=== PATIENT | female | born 1970 | race Caucasian/White ===

== ENCOUNTER 2017-09-17 11:52 | Emergency (ER) | payer OTHER, SELFPAY ==
[2017-09-17 11:58] VITALS: BP 115/73; PULSE 72; RESP 20; TEMP 36.3; O2SAT 98; BMI 26.4
--- NOTE | 2017-09-17 12:56 | ED_ITS ---
HPI - Wound/Laceration <KATERINE Pitts Last Filed: 09/17/17 21:43> General Chief Complaint: Wound/Laceration Stated Complaint: LACERATION TO INDEX FINGER R HAND LAST NIGHT Time Seen by Provider: 09/17/17 13:06 Source: patient Mode of arrival: ambulatory Limitations: no limitations History of Present Illness HPI narrative: This 47-year-old right-handed female was cleaning a knife at home last night when it slipped and cut her right pointer finger pad. She states it tends to start bleeding again when she moves her finger, so wondering if she might need stitches. 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 She denies any other injury. She states that the area is tender with pressure, can feel somewhat numb at times. She denies any weakness in the finger. She does not know when her last tetanus vaccine was Related Data Home Medications Medication Instructions Recorded Confirmed levothyroxine [Synthroid] 100 mcg PO QAM #0 06/09/17 Previous Rx's Medication Instructions Recorded cyclobenzaprine 10 mg PO Q8HP PRN #20 tab 06/09/17 Allergies Allergy/AdvReac Type Severity Reaction Status Date / Time No Known Drug Allergies Allergy Verified 09/17/17 12:04 Review of Systems <KATERINE Pitts Last Filed: 09/17/17 21:43> Review of Systems All systems reviewed & are unremarkable except as noted in HPI and below Exam <KATERINE Pitts Last Filed: 09/17/17 21:43> Narrative Exam Narrative: GENERAL APPEARANCE: Patient sitting comfortably, in no distress. DERM: Right pointer finger pad there is a 1 cm linear laceration that appears to be mostly closed, depth not more than 1 mm, no active bleeding, slight ecchymoses at the borders MS: R. pointer finger range of motion is intact, strength is intact against resistance in all [place] NEUROVASC: Right pointer finger tip is warm and pink, sensation grossly intact Course <KATERINE Pitts Last Filed: 09/17/17 21:43> Orders Ordered: Discontinued Medications Diphtheria/Tetanus/Acell Pertussis (Adacel) 0.5 ml IM .ONCE ONE Stop: 09/17/17 13:36 Last Admin: 09/17/17 13:37 Dose: 0.5 ml Tetanus/Diphtheria Toxoids (Td) 0.5 ml IM .ONCE ONE Stop: 09/17/17 18:20 Last Vital Signs Temp 97.3 F L 09/17/17 11:58 Pulse 72 09/17/17 11:58 Resp 20 09/17/17 11:58 BP 115/73 09/17/17 11:58 Pulse Ox 98 09/17/17 11:58 <Francisco Brannon DO - Last Filed: 09/21/17 07:08> Orders Ordered: Discontinued Medications Diphtheria/Tetanus/Acell Pertussis (Adacel) 0.5 ml IM .ONCE ONE Stop: 09/17/17 13:36 Last Admin: 09/17/17 13:37 Dose: 0.5 ml Tetanus/Diphtheria Toxoids (Td) 0.5 ml IM .ONCE ONE Stop: 09/17/17 18:20 Last Vital Signs Temp 97.3 F L 09/17/17 11:58 Pulse 72 09/17/17 11:58 Resp 20 09/17/17 11:58 BP 115/73 09/17/17 11:58 Pulse Ox 98 09/17/17 11:58 MDM - Wound/Laceration <Ijeoma Mccormick PA-C - Last Filed: 09/17/17 21:43> Lab Data Attestation: I reviewed the patient's lab results. Discharge Plan Departure Patient Disposition: Home, Self-Care Clinical Impression: Laceration of finger Discharge Date/Time: 09/17/17 13:47 Interventions: ED Discharge Assessment Last Done: 09/17/17 13:44 Instructions: DI for Minor Laceration Activity Restrictions/Additional Instructions: Keep this wound clean and dry and protected, especially while you are at work. Monitor for signs of infection and return here to your PCP if any Prescriptions: No Action levothyroxine [Synthroid] 100 MCG tablet 100 mcg PO QAM Qty: 0 RF: 0 cyclobenzaprine 10 MG tablet 10 mg PO Q8HP PRNQty: 20 RF: 0 Referrals: [facility] [Provider Group] <Francisco Brannon DO - Last Filed: 09/21/17 07:08> Cosign ED Attending Cosignature Attestation: I was available for consultation during this patient's emergency department encounter
[2017-09-17] MEDS: TET,DIPH,PERTUSS(ACELL),VAC/PF 0.5 ML SYRINGE IM (13:37)
--- NOTE | 2017-09-17 13:40 | PC.NURSE ---
sterdemarioips., jordi small, lily
== END 2017-09-17 13:47 | disposition home or self-care (01) ==
PROVIDERS: Emergency Provider Internal Medicine
DX: S61.210A Laceration without foreign body of right index finger without damage to nail, initial encounter (principal); W26.0XXA Contact with knife, initial encounter
CPT/HCPCS: 12001; 99283; 90715

== ENCOUNTER 2018-07-09 08:49 | Emergency (ER) | payer OTHER, SELFPAY ==
[2018-07-09 08:55] VITALS: BP 108/81; PULSE 78; RESP 16; TEMP 36.7; O2SAT 100; BMI 28.3
--- NOTE | 2018-07-09 09:42 | ED.URI ---
HPI - URI/Sore Throat General Chief Complaint: Upper Respiratory Symptoms Stated Complaint: 'sick for a month' Time Seen by Provider: 07/09/18 09:25 Source: patient Mode of arrival: ambulatory Limitations: no limitations History of Present Illness HPI Narrative: patient is a 48-year-old female. Otherwise healthy except for hypothyroid who states that over the past month she has had sinus congestion, tenderness with palpation of the sinuses, runny nose, sore throat, right ear fullness. She has been on Claritin and Flonase for the past month which has not improved her symptoms all that much. She denies any fevers. She states that yesterday she started to have a cough. Denies any body aches. Related Data Home Medications Medication Instructions Recorded Confirmed levothyroxine [Synthroid] 100 mcg PO QAM #0 06/09/17 Previous Rx's Medication Instructions Recorded cyclobenzaprine 10 mg PO Q8HP PRN #20 tab 06/09/17 azithromycin See Rx Instructions .ROUTE 07/09/18 .COMPLEX #6 tab oseltamivir [Tamiflu] 75 mg PO BID 5 Days #10 cap 07/09/18 Allergies Allergy/AdvReac Type Severity Reaction Status Date / Time No Known Drug Allergies Allergy Verified 07/09/18 08:55 Review of Systems Constitutional Denies fever(s) and Denies headache(s) Eyes Denies change in vision and Denies diplopia ENT Ears, Nose, Mouth, and Throat: Denies vertigo, Denies dizziness, Denies ear discharge, Reports facial pain, Denies headache(s), Denies mouth pain, Reports nasal congestion, Reports nasal discharge, Denies neck pain, Denies nose pain, Reports post nasal drip, Reports tinnitus, Reports sinus pain, Reports sinus pressure and Reports sore throat Cardiovascular Denies chest pain and Denies dyspnea Respiratory Reports cough and Denies dyspnea Gastrointestinal Gastrointestinal: Denies abdominal pain, Denies nausea and Denies vomiting Musculoskeletal Denies myalgias, Denies arthralgias and Denies neck pain Integumentary/Breasts Denies rash Neurologic Denies vertigo, Denies dizziness and Denies headache(s) Hematologic/Lymphatic Denies easy bleeding and Denies easy bruising PFSH Social History Smoking Status: Never smoker Exam Initial Vital Signs Initial Vital Signs: Vital Signs Temperature 98.1 F 07/09/18 08:55 Pulse Rate 78 07/09/18 08:55 Respiratory Rate 16 07/09/18 08:55 Blood Pressure 108/81 07/09/18 08:55 Pulse Oximetry 100 07/09/18 08:55 Const General: cooperative, comfortable, well developed, well groomed and No acute distress Orientation: alert, awake and oriented x3 HENMT Head: normal to inspection and normocephalic Ears: TM normal on the left and TM abnormal bulging on the right, wth effusion serous on the right and with fluid behind the TM on the right; not erythematous Nose: external nose normal Face and sinus: tenderness bilaterally ( Over the frontal and maxillary sinuses) forehead and maxilla Mouth: oral mucosae normal and moist mucous membranes Throat: posterior oropharynx abnormal cobblestoning Resp Effort & Inspection: normal respiratory effort Auscultation: clear to auscultation bilaterally Cardio Rate: regular rate Rhythm: regular rhythm Skin Lesions: no lesions Rashes: no rashes Neuro General: alert, awake and oriented x3 Extrem General: normal to inspection and capillary refill normal Psych Appearance: grossly normal and well kempt Course Orders Ordered: ED Orders 07/09/18 09:28 Influenza A and B by PCR Rapid Stat Vital Signs - 8 hr 07/09/18 08:55 Temperature 98.1 F Pulse Rate 78 Respiratory Rate 16 Blood Pressure 108/81 Pulse Oximetry 100 [facility] - URI/Sore Throat Lab Data Attestation: I reviewed the patient's lab results. Lab Results 07/09/18 Range/Units 09:28 Influenza A & B (PCR) Positive, type a A (Negative) [facility] Narrative Medical decision making narrative: patient has been on decongestants for the past month. She has been using them every day. She does have what appears to be an upper respiratory infection. Does have fluid behind the right ear. Has sinus tenderness to palpation. Does have tenderness to her sinuses when she bends over. Also has physical exam consistent with a postnasal drip. Low suspicion for pneumonia. Given the fact that she has been on decongestants for the past month without any improvement and does have other signs of sinusitis I feel that a course of antibiotics for this is not unreasonable. The patient agrees. Surprisingly the patient also came back positive for the flu. Unknown as to how long she has had symptoms. We had a long discussion about Tamiflu and the guidelines for treating versus not treating. Patient does work in a cafeteria at a school. we did have a discussion about that her other symptoms could be potentially related to the flu however I feel this is unlikely since they have been going on for the past month. We did discuss the limited benefit of Tamiflu however the patient opted to take this medication. Patient was given return precautions. She expressed understanding and agreement with plan. Discharge Plan Departure Patient Disposition: Home Clinical Impression: Influenza Sinusitis Qualifiers: Sinusitis location: frontal Chronicity: acute Recurrence: not specified as recurrent Qualified Code(s): J01.10 - Acute frontal sinusitis, unspecified Instructions: Sinusitis, DI for Influenza -- Adult Activity Restrictions/Additional Instructions: take the medications as directed. Contact your primary care doctor for a follow-up. Return to the emergency department for any new or worsening symptoms Prescriptions: New azithromycin 250 mg tablet See Rx Instructions .ROUTE .COMPLEX Qty: 6 RF: 0 oseltamivir [Tamiflu] 75 mg capsule 75 mg PO BID 5 Days Qty: 10 RF: 0 No Action levothyroxine [Synthroid] 100 MCG tablet 100 mcg PO QAM Qty: 0 RF: 0 cyclobenzaprine 10 MG tablet 10 mg PO Q8HP PRNQty: 20 RF: 0
== END 2018-07-09 10:28 | disposition home or self-care (01) ==
PROVIDERS: Emergency Provider Emergency Medicine
DX: J11.1 Influenza due to unidentified influenza virus with other respiratory manifestations (principal); J01.10 Acute frontal sinusitis, unspecified
CPT/HCPCS: 87400; 99282

== ENCOUNTER 2019-04-21 10:47 | Emergency (ER) | payer OTHER, SELFPAY ==
[2019-04-21 10:54] VITALS: BP 120/81; PULSE 83; RESP 16; TEMP 36.7; O2SAT 95
--- NOTE | 2019-04-21 11:01 | ED.URI ---
HPI - URI/Sore Throat <ROXANNE Oneill - Last Filed: 04/21/19 19:30> General Chief Complaint: Upper Respiratory Symptoms Stated Complaint: stuffy nose,coughing,fever,headache Time Seen by Provider: 04/21/19 10:56 Source: patient Mode of arrival: Ambulatory Limitations: no limitations History of Present Illness HPI Narrative: 48yo female, presents to the emergency department complaining of a cough, myalgias, rhinorrhea, and a fever of 101 F starting 6 days ago. She states the rhinorrhea and cough have slowly resolved but she continues to have a dull aching ?sinus headache with a gradual onset ?that is worse toward the end. She took Tylenol for this headache but denies taking any ibuprofen as she states she has having a carbuncle removed on the and was told to refrain from taking aspirin 5 days prior to the procedure. Patient denies any history of asthma, nausea, vomiting, diarrhea, dizziness, loss of vision, sudden onset of headache, facial droop, shortness of breath, chest pain, abdominal pain, or other concerns. Related Data Home Medications Medication Instructions Recorded Confirmed levothyroxine [Synthroid] 112 mcg PO DAILY 04/21/19 04/21/19 loratadine 10 mg PO DAILY 04/21/19 Previous Rx's Medication Instructions Recorded fluticasone propionate [Flonase 1 spray NASAL BID #15.8 ml 04/21/19 Allergy Relief] metoclopramide HCl [Reglan] 5 mg PO Q4-6H PRN #10 tab 04/21/19 Allergies Allergy/AdvReac Type Severity Reaction Status Date / Time No Known Drug Allergies Allergy Verified 07/09/18 08:55 Review of Systems <ROXANNE Oneill - Last Filed: 04/21/19 19:30> Review of Systems Narrative: REVIEW OF SYSTEMS: GENERAL: Denies fevers. HENT: No head trauma or hearing loss. EYES: No loss of vision, double vision, eye pain, irritation or discharge. CARDIOVASCULAR: No chest pain or syncope. RESPIRATORY: No shortness of breath. Complains of cough, see HPI, GASTROINTESTINAL: No nausea, vomiting, diarrhea, or constipation. MUSCULOSKELETAL: No weakness or injury. INTEGUMENTARY: No rash, lesions, or pruritus. NEURO: No memory loss, or confusion. Patient History <ROXANNE Oneill - Last Filed: 04/21/19 19:30> Medical History Hypothyroid (Chronic) Surgical History History of partial hysterectomy (Resolved) Hx of cholecystectomy (Resolved) Social History Smoking Status: Never smoker Smoking Status: Never smoker alcohol intake frequency: a few times a week Substance Use Type: does not use Exam <ROXANNE Oneill - Last Filed: 04/21/19 19:30> Initial Vital Signs Initial Vital Signs: Vital Signs Temperature 98.1 F 04/21/19 10:54 Pulse Rate 83 04/21/19 10:54 Respiratory Rate 16 04/21/19 10:54 Blood Pressure 120/81 04/21/19 10:54 Pulse Oximetry 95 04/21/19 10:54 PHYSICAL EXAMINATION: GENERAL: Well groomed, alert, and cooperative. Answers questions promptly and appropriately. Vital signs noted. HENT: Normocephalic, atraumatic. Ear canals patent. TMs intact without mucus or erythema. Oropharynx with slight erythema, postnasal drip present. Tonsils are not present. EYES: Conjunctiva pink, sclera white, no periorbital swelling. No discharge. CHEST: Normal to inspection and without deformities. CARDIOVASCULAR: S1 and S2 sounds normal. Regular rate and rhythm, no murmurs, clicks, or bruits. RESPIRATORY: Normal respiratory rate, trachea midline, airway patent. No stridor, nasal flaring or accessory muscle use. Able to speak in full sentences. Lungs are clear in all [place] without wheeze, rhonchi, or crackles. Dry cough noted throughout examination. MUSCULOSKELETAL: Normal gait and coordination. Equal tone and mass bilaterally. EXTREMITIES: Moves all extremities. SKIN: Warm, dry, soft, appropriate color for ethnicity. No lesions, rashes, or wounds. NEURO: Alert and Oriented X 3. Good coordination. No ataxia or cognitive issues. PSYCH: Appropriate affect and mood. <Samantha Donovan MD - Last Filed: 04/22/19 07:03> Initial Vital Signs Initial Vital Signs: Vital Signs Temperature 98.1 F 04/21/19 10:54 Pulse Rate 83 04/21/19 10:54 Respiratory Rate 16 04/21/19 10:54 Blood Pressure 120/81 04/21/19 10:54 Pulse Oximetry 95 04/21/19 10:54 Course <ROXANNE Oneill - Last Filed: 04/21/19 19:30> Course Course Narrative: Patient was given 30 mg of Toradol IM in the emergency department, she states her pain is slightly resolved. She was given scripts for other medication as she drove here. Orders Ordered: Discontinued Medications Ketorolac Tromethamine (Toradol) 30 mg IM NOW ONE Stop: 04/21/19 11:33 Last Admin: 04/21/19 11:50 Dose: 30 mg Documented by: SCANAPO Vital Signs Vital signs: Vital Signs - 8 hr 04/21/19 12:43 Pulse Rate 77 Respiratory Rate 16 Blood Pressure 138/64 Pulse Oximetry 100 <Samantha Donovan MD - Last Filed: 04/22/19 07:03> Orders Ordered: Discontinued Medications Ketorolac Tromethamine (Toradol) 30 mg IM NOW ONE Stop: 04/21/19 11:33 Last Admin: 04/21/19 11:50 Dose: 30 mg Documented by: SCANAPO Vital Signs Vital signs: Vital Signs - 8 hr 04/21/19 12:43 Pulse Rate 77 Respiratory Rate 16 Blood Pressure 138/64 Pulse Oximetry 100 MDM - URI/Sore Throat <ROXANNE Oneill - Last Filed: 04/21/19 19:30> Medical Records Attestation: I reviewed the patient's medical records. Lab Data Attestation: I reviewed the patient's lab results. Labs: Lab Results 04/21/19 Range/Units 10:55 Influenza A (RT-PCR) Flu a negative (NEGATIVE) Influenza B (RT-PCR) Flu b negative (NEGATIVE) MDM Narrative Medical decision making narrative: 48-year-old female with a history of upper respiratory symptoms and a gradual-onset headache that appears noted to URI symptoms. Suspect patient most likely has an upper respiratory viral illness due to duration of symptoms, gradual resolution, and lack of other symptoms. Less likely influenza due to negative influenza swab, less likely pneumonia due to lack of fever and resolving cough, less likely cranial etiology due to normal neuro examination, gradual onset of headache, and decreased pain after Toradol administration. Patient was encouraged to use Flonase, Benadryl, Reglan, and ibuprofen over the next few days to help with headache. She was encouraged to follow-up with her primary care provider in the next week for re-evaluation. Strict return precautions given for new or worsening symptoms. <Samantha Donovan MD - Last Filed: 04/22/19 07:03> Lab Data Labs: Lab Results 04/21/19 Range/Units 10:55 Influenza A (RT-PCR) Flu a negative (NEGATIVE) Influenza B (RT-PCR) Flu b negative (NEGATIVE) Discharge Plan Departure Patient Disposition: Home Clinical Impression: Viral respiratory illness Headache Qualifiers: Headache type: unspecified Headache chronicity pattern: acute headache Intractability: not intractable Qualified Code(s): R51 - Headache Discharge Date/Time: 04/21/19 12:45 Instructions: Common Cold, DI for Sinus Headache Activity Restrictions/Additional Instructions: Thank you for entrusting me with your care today. As discussed, your influenza swab was negative for both influenza B and A. You most likely have a viral illness. We have given you Toradol for your headache, you can take 1000mg of acetaminophen and 25mg of Benadryl when you get home to help with her headache as well. Please use Flonase intranasally, 1 spray in each nostril morning and night for the next 2 weeks to help with sinus congestion and headaches. I've also prescribed Reglan to help with your headaches, this medication can make you drowsy so do not drive with this medication. Prescriptions: New fluticasone propionate [Flonase Allergy Relief] 50 mcg/actuation spray,suspension 1 spray NASAL BID Qty: 15.8 RF: 0 metoclopramide HCl [Reglan] 5 mg tablet 5 mg PO Q4-6H PRN (Reason: Headaches) Qty: 10 RF: 0 No Action loratadine 10 mg tablet 10 mg PO DAILY RF: 0 levothyroxine [Synthroid] 112 mcg tablet 112 mcg PO DAILY RF: 0
[2019-04-21 11:35] LABS: Influenza A - CEPHEID Flu A NEGATIVE (NEGATIVE); Influenza B - CEPHEID Flu B NEGATIVE (NEGATIVE)
[2019-04-21] MEDS: KETOROLAC 60 MG/2 ML VIAL 30 MG IM (11:50)
[2019-04-21 12:43] VITALS: BP 138/64; PULSE 77; RESP 16; O2SAT 100
== END 2019-04-21 12:45 | disposition home or self-care (01) ==
PROVIDERS: Emergency Provider Nurse Practitioner
DX: J98.8 Other specified respiratory disorders (principal); R51 Headache; B97.89 Other viral agents as the cause of diseases classified elsewhere
CPT/HCPCS: 87502; 96372; 99283; J1885